=== PATIENT | male | born 1975 | race Caucasian/White ===

== ENCOUNTER 2021-05-02 12:51 | Outpatient (CLI) | payer OTHER, SELFPAY ==
[2021-05-02 13:10] LABS: Absolute Lymphocyte Count 1.24 X10^3/uL (0.83-4.51); Absolute Neutrophil Count 4.9 X10^3/uL (2.0-7.7); Basophil# 0.03 X10^3/uL; Basophil% 0.4 % (0-1); Eosinophil# 0.11 X10^3/uL; Eosinophils% 1.5 % (0-5); Hematocrit 45.4 % (40-54); Hemoglobin 14.8 g/dL (13.0-16.5); Lymphocyte # 1.24 X10^3/ul (0.83-4.51); Lymphocyte % 16.9 % (19-41); Mean Corp Hgb Conc 32.6 g/dL (32-36); Mean Corpuscular Hgb 28.5 pg (27.0-32.0); Mean Corpuscular Volume 87.3 fL (80-94); Mean Platelet Vol. 11.7 fl (6.2-12.0); Monocyte# 1.09 X10^3/uL; Monocyte% 14.8 % (0-10); NRBC Flagged by Analyzer 0 % (0-5); Neutrophil # 4.86 X10^3/uL (2.7-7.7); Neutrophil % 66.1 % (47-70); Platelet Count 249 K/mm3 (150-450); RBC Distribution Width CV 13.8 % (11.6-14.6); RBC Distribution Width SD 44.1 fl (35.1-43.9); White Blood Count 7.4 K/mm3 (4.4-11.0)
[2021-05-02 13:44] LABS: AST(SGOT) 46 U/L (15-37); Alanine Aminotransfer ALT/SGPT 71 U/L (16-61); Albumin, Serum 3.3 g/dL (3.2-5.0); Alkaline Phosphatase 78 U/L (45-117); Bilirubin, Direct 0.15 mg/dL (0.00-0.30); CRP 8.88 mg/L (0.0-3.0); LDH 206 U/L (87-241); Protein, Total 7.3 g/dL (6.4-8.2)
[2021-05-02 13:59] LABS: Erythrocyte Sedimentation Rate 7 mm/hr (0-20)
[2021-05-05 08:55] LABS: Anion Gap 3 (5-15); BUN 16 mg/dL (7-18); BUN/Creat Ratio 10.8 RATIO (10-20); Calcium,Total 8.3 mg/dL (8.5-10.1); Chloride 108 mmol/L (98-107); Creatinine, Serum 1.48 mg/dL (0.70-1.30); EST Glomerular Filtration Rate 54 mL/min (>60); Est Glom Filt Rate - Afr Amer 66 mL/min (>60); Glucose 65 mg/dL (74-106); Sodium Level 139 mmol/L (136-145)
[2021-05-05 18:08] LABS: HEPATITIS B SURFACE AG Negative (Negative); Hepatitis A IgM Antibody Negative (Negative); Hepatitis B Core AB IgM Negative (Negative)
[2021-05-06 12:52] LABS: Hep C Antibodies <0.1 s/co ratio (0.0-0.9)
== END 2021-05-02 23:59 | disposition short-term general hospital (02) ==
LOC: LAB 12:56
PROVIDERS: PCP Family Medicine; Visit Provider Nurse Practitioner Adult Health
DX: R74.8 Abnormal levels of other serum enzymes (principal); R19.7 Diarrhea, unspecified; K92.1 Melena; R10.9 Unspecified abdominal pain
CPT/HCPCS: 36415; 80048; 80074; 80076; 83615; 85025; 85652; 86140

== ENCOUNTER 2021-05-05 07:51 | Outpatient (CLI) | payer OTHER, SELFPAY ==
[2021-05-08 11:08] LABS: H. PYLORI STOOL AG Negative (Negative)
[2021-05-08 13:06] LABS: Giardia Lamblia, Stool EIA Positive (Negative)
== END 2021-05-05 23:59 | disposition short-term general hospital (02) ==
LOC: LABSPEC 07:54
PROVIDERS: PCP Family Medicine; Referring Provider Nurse Practitioner Adult Health; Visit Provider Nurse Practitioner Adult Health
DX: R19.7 Diarrhea, unspecified (principal)
CPT/HCPCS: 87177; 87209; 87329; 87493; 87506

== ENCOUNTER 2021-06-02 07:55 | Outpatient (CLI) | payer OTHER, SELFPAY ==
[2021-06-02 08:29] LABS: AST(SGOT) 37 U/L (15-37); Alanine Aminotransfer ALT/SGPT 61 U/L (16-61); Albumin, Serum 3.6 g/dL (3.2-5.0); Alkaline Phosphatase 64 U/L (45-117); Anion Gap 2 (5-15); BUN 16 mg/dL (7-18); BUN/Creat Ratio 12.2 RATIO (10-20); Calcium,Total 8.6 mg/dL (8.5-10.1); Chloride 106 mmol/L (98-107); Creatinine, Serum 1.31 mg/dL (0.70-1.30); EST Glomerular Filtration Rate 63 mL/min (>60); Est Glom Filt Rate - Afr Amer 76 mL/min (>60); Globulin 3.7 g/dL (2.2-4.2); Glucose 103 mg/dL (74-106); Potassium 4.3 mmol/L (3.5-5.1); Protein, Total 7.3 g/dL (6.4-8.2); Sodium Level 140 mmol/L (136-145)
[2021-06-02 08:32] LABS: CRP < 2.90 mg/L (0.0-3.0)
== END 2021-06-02 23:59 | disposition home or self-care (01) ==
LOC: LAB 07:57
PROVIDERS: PCP Family Medicine; Referring Provider Nurse Practitioner Adult Health; Visit Provider Nurse Practitioner Adult Health
DX: A07.1 Giardiasis [lambliasis] (principal)
CPT/HCPCS: 36415; 80053; 86140

== ENCOUNTER 2021-06-03 08:29 | Outpatient (CLI) | payer OTHER, SELFPAY ==
[2021-06-04 17:51] LABS: Giardia Lamblia, Stool EIA Negative (Negative)
== END 2021-06-03 23:59 | disposition home or self-care (01) ==
PROVIDERS: PCP Family Medicine; Referring Provider Internal Medicine Gastroenterology; Visit Provider Internal Medicine Gastroenterology
DX: A07.1 Giardiasis [lambliasis] (principal)
CPT/HCPCS: 87329

== ENCOUNTER → 2021-08-11 | Outpatient (CLI) | payer OTHER, SELFPAY | END | disposition home or self-care (01) | PROVIDERS: PCP Family Medicine; Referring Provider Internal Medicine Gastroenterology; Visit Provider Internal Medicine Gastroenterology | DX: A07.1 Giardiasis [lambliasis] (principal) | CPT/HCPCS: 87177; 87209; 87329; 87493; 87506 ==

== ENCOUNTER → 2021-08-14 | Outpatient (CLI) | payer OTHER, SELFPAY ==
[2021-08-14 08:15] LABS: Absolute Lymphocyte Count 1.53 X10^3/uL (0.83-4.51); Absolute Neutrophil Count 2.6 X10^3/uL (2.0-7.7); Basophil# 0.04 X10^3/uL; Basophil% 0.8 % (0-1); Hematocrit 45.8 % (40-54); Hemoglobin 15.3 g/dL (13.0-16.5); Lymphocyte # 1.53 X10^3/ul (0.83-4.51); Lymphocyte % 31.4 % (19-41); Mean Corp Hgb Conc 33.4 g/dL (32-36); Mean Corpuscular Hgb 28.7 pg (27.0-32.0); Mean Corpuscular Volume 85.8 fL (80-94); Mean Platelet Vol. 10.7 fl (6.2-12.0); Monocyte# 0.57 X10^3/uL; Monocyte% 11.7 % (0-10); NRBC Flagged by Analyzer 0 % (0-5); Neutrophil # 2.61 X10^3/uL (2.7-7.7); Neutrophil % 53.5 % (47-70); Platelet Count 312 K/mm3 (150-450); RBC Distribution Width CV 13.2 % (11.6-14.6); RBC Distribution Width SD 41.3 fl (35.1-43.9); Red Blood Count 5.34 M/mm3 (4.6-6.2); White Blood Count 4.9 K/mm3 (4.4-11.0)
[2021-08-14 08:44] LABS: ALB/GLOB Ratio 0.8 RATIO (0.9-2.4); AST(SGOT) 25 U/L (15-37); Alanine Aminotransfer ALT/SGPT 44 U/L (16-61); Albumin, Serum 3.3 g/dL (3.2-5.0); Alkaline Phosphatase 73 U/L (45-117); Anion Gap 6 (5-15); BUN 22 mg/dL (7-18); BUN/Creat Ratio 16.8 RATIO (10-20); Calcium,Total 9.1 mg/dL (8.5-10.1); Chloride 104 mmol/L (98-107); Creatinine, Serum 1.31 mg/dL (0.70-1.30); EST Glomerular Filtration Rate 63 mL/min (>60); Est Glom Filt Rate - Afr Amer 76 mL/min (>60); Globulin 4.1 g/dL (2.2-4.2); Glucose 91 mg/dL (74-106); Potassium 3.5 mmol/L (3.5-5.1); Protein, Total 7.4 g/dL (6.4-8.2); Sodium Level 140 mmol/L (136-145)
[2021-08-22 17:07] LABS: Immunoglobulin A 220 mg/dL (90-386); Immunoglobulin E 44 IU/mL (6-495); Immunoglobulin G 1066 mg/dL (603-1613); Immunoglobulin M 54 mg/dL (20-172)
[2021-08-22 17:16] LABS: Complement C3 192 mg/dL (82-167)
== END | disposition home or self-care (01) ==
LOC: LAB 07:43
PROVIDERS: PCP Family Medicine; Referring Provider Internal Medicine Gastroenterology; Visit Provider Internal Medicine Gastroenterology
DX: A04.5 Campylobacter enteritis (principal); A07.1 Giardiasis [lambliasis]
CPT/HCPCS: 36415; 80053; 82784; 82785; 85025; 86160

== ENCOUNTER → 2022-01-15 | Outpatient (CLI) | payer OTHER, SELFPAY ==
--- NOTE | 2022-01-15 09:19 | RAD_ITS ---
STUDY: X-RAY CHEST REASON FOR EXAM: Male, 46 years old. COUGH TECHNIQUE: PA or AP and lateral COMPARISON: None. FINDINGS: The lungs are clear and expanded. There is no demonstrated pleural abnormality. Normal size heart. Normal mediastinum and nithin. Normal visualized pulmonary arteries. Normal visualized aortic arch and descending thoracic aorta. Normal visualized thoracic spine. Normal visualized ribs, clavicles, and shoulders. There is no demonstrated abnormality of the visualized soft tissue structures of the upper abdomen. RAD/Chest PA and Lateral IMPRESSION: Normal x-ray examination of the chest. Electronically Signed: Armando Cast MD, JEOVANNY at 10:39 EDT ,
[2022-01-15 10:21] LABS: Erythrocyte Sedimentation Rate 11 mm/hr (0-20)
[2022-01-15 10:48] LABS: CRP < 2.90 mg/L (0.0-3.0)
== END | disposition home or self-care (01) ==
LOC: MTLAB 09:17
PROVIDERS: PCP Family Medicine; Referring Provider Internal Medicine Pulmonary Disease; Visit Provider Internal Medicine Pulmonary Disease
DX: R05.9 Cough, unspecified (principal); R07.1 Chest pain on breathing; U07.1 COVID-19
CPT/HCPCS: 36415; 71046; 85652; 86140

== ENCOUNTER → 2022-11-26 | Outpatient (CLI) | payer OTHER, SELFPAY ==
--- NOTE | 2022-11-26 12:48 | ECHOD_ITS ---
Reason For Study: ROSALINA Procedure This was a 2D Doppler, Color Flow transthoracic echocardiogram. Exam performed in department. Left Ventricle Normal LV size. Left ventricular systolic function is normal. The estimated ejection fraction is 65 %. Normal diastololic function. No regional wall motion abnormalities noted. Right Ventricle Normal RV size. Normal systolic function. Atria The left and right atria are normal. Mitral Valve The mitral valve is structurally normal. No prolapse or stenosis seen. Mild (1+) mitral valve insufficiency. Tricuspid Valve Normal tricuspid valve. Mild (1+) tricuspid valve insufficiency. Right ventricular systolic pressure estimated to be 29 mmHg. Aortic Valve Trisinus/trileaflet aortic valve. Pulmonic Valve Normal pulmonic valve. Trivial pulmonic valve insufficiency. Great Vessels Normal aortic root. Pericardium/Pleural No pericardial effusion. MMode/2D Measurements & Calculations LVIDd: 5.4 cm IVSd: 0.96 cm Ao root diam: 3.5 cm LVIDs: 3.4 cm LVPWd: 0.82 cm RVDd: 3.6 cm FS: 38.0 % LAV(MOD-bp): 59.4 ml LVAd ap4: 31.4 cm2 SV(MOD-sp4): 63.8 ml LAV(MOD-bp) Indexed: 26.7 ml/m2 LVLd ap4: 8.0 cm LAV(MOD-sp2): 57.1 ml EDV(MOD-sp4): 103.0 ml LAV(MOD-sp4): 53.3 ml EDV(sp4-el): 104.7 ml LVAs ap4: 17.4 cm2 LVLs ap4: 6.5 cm ESV(MOD-sp4): 39.2 ml ESV(sp4-el): 39.7 ml EF(MOD-sp4): 61.9 % EF(sp4-el): 62.1 % SV(sp4-el): 65.0 ml LA A4 area: 17.7 cm2 LA dimension(2D): 3.7 cm RA A4 area: 17.4 cm2 TAPSE: 2.9 cm Time Measurements MV dec time: 0.18 sec Doppler Measurements & Calculations MV E max ector: 68.2 cm/sec Lat Peak E' Ector: 12.8 cm/sec Med Peak E' Ector: 9.4 cm/sec MV A max ector: 50.6 cm/sec E/E' lat: 5.3 E/E' med: 7.3 MV E/A: 1.3 MV V2 max: 65.4 cm/sec Ao V2 max: 155.1 cm/sec MV max P.7 mmHg MV dec slope: 390.6 cm/sec2 Ao max P.6 mmHg MV V2 mean: 44.3 cm/sec Ao V2 mean: 107.2 cm/sec MV mean P.84 mmHg Ao mean P.3 mmHg MV V2 VTI: 21.6 cm Ao V2 VTI: 33.4 cm AV (velocity ratio): 0.76 LV V1 max: 107.7 cm/sec PA V2 max: 108.8 cm/sec TR max ector: 254.3 cm/sec LV V1 max P.6 mmHg PA V2 mean: 70.3 cm/sec TR max P.9 mmHg LV V1 mean P.6 mmHg LV V1 mean: 74.9 cm/sec LV V1 VTI: 25.3 cm ECHO/Echo Complete Interpretation Summary The estimated ejection fraction is 65 %. Mild (1+) mitral valve insufficiency. Mild (1+) tricuspid valve insufficiency. Right ventricular systolic pressure estimated to be 29 mmHg. Ordering Physician: Obdulio Gillette V Referring Physician: Obdulio Gillette V Performed By: Marquita Lloyd RCS
== END | disposition home or self-care (01) ==
PROVIDERS: PCP Family Medicine; Referring Provider Internal Medicine Pulmonary Disease; Visit Provider Internal Medicine Pulmonary Disease
DX: G47.33 Obstructive sleep apnea (adult) (pediatric) (principal)
CPT/HCPCS: 93306